=== PATIENT | female | born 1980 | race Hispanic/Latino ===

== ENCOUNTER → 2022-06-15 | Outpatient (CLI) | payer OTHER ==
--- NOTE | 2022-06-15 15:45 | DIREP ---
PROCEDURE:XRAY SINUSES PARANASAL<3 VWS COMPARISON:None. INDICATIONS:HISTORY AND PHYSICAL EVALUATION TECHNIQUE: 3 VIEWS FINDINGS: MAXILLARY:Mild left maxillary sinus floor mucosal thickening. No air-fluid levels. ETHMOID:Normal. No mucosal thickening or fluid level. FRONTAL:Normal. No mucosal thickening or fluid level. SPHENOID:Normal. No mucosal thickening or fluid level. OTHER:Negative. CONCLUSION:Left maxillary sinus disease. Dictated by: Irene Cole MD on 06/15/2022 at 03:42 PM
== END | disposition home or self-care (01) ==
LOC: RAD 15:20
PROVIDERS: ATTEND Nurse Practitioner
DX: J32.0 Chronic maxillary sinusitis (principal); Z00.00 Encounter for general adult medical examination without abnormal findings
CPT/HCPCS: 70220